=== PATIENT | female | born 1980 | race Caucasian/White ===

== ENCOUNTER 2024-02-07 18:57 | Emergency (ER) | payer SELFPAY ==
[~2024-02-07] VITALS: Ht 165.1 cm; Wt 65.0 kg
[2024-02-07 19:05] VITALS: BP 140/93; PULSE 110; RESP 16; TEMP 98.3; O2SAT 100
== END 2024-02-07 20:37 | disposition home or self-care (01) ==
LOC: ER 18:57
DX: F15.10 Other stimulant abuse, uncomplicated (principal)
CPT/HCPCS: 71045; 99283